=== PATIENT | male | born 1985 | race African-American/Black ===

== ENCOUNTER 2020-12-01 11:01 | Emergency (ER) | payer MEDICAID, OTHER ==
[~2020-12-01] VITALS: Ht 180.3 cm; Wt 102.1 kg
[2020-12-01 13:13] VITALS: BP 120/73
== END 2020-12-01 14:09 | disposition home or self-care (01) ==
LOC: ER 11:01
DX: M25.512 Pain in left shoulder (principal); M62.838 Other muscle spasm
CPT/HCPCS: 73030

== ENCOUNTER 2020-12-17 02:57 | Emergency (ER) | payer MEDICAID, OTHER ==
[~2020-12-17] VITALS: Ht 180.3 cm; Wt 102.1 kg
[2020-12-17 04:38] VITALS: BP 120/78
== END 2020-12-17 06:44 | disposition home or self-care (01) ==
LOC: ER 02:57 → EDUNIT# 02:57 → ER 06:44
DX: S46.812A Strain of other muscles, fascia and tendons at shoulder and upper arm level, left arm, initial encounter (principal); J20.9 Acute bronchitis, unspecified; X58.XXXA Exposure to other specified factors, initial encounter; Y93.89 Activity, other specified; Y92.89 Other specified places as the place of occurrence of the external cause; Y99.8 Other external cause status
CPT/HCPCS: 71046